=== PATIENT | male | born 1965 | race African-American/Black ===

== ENCOUNTER 2019-10-23 16:12 | Emergency (ER) | payer SELFPAY ==
[~2019-10-23] VITALS: Ht 172.7 cm; Wt 75.0 kg
[2019-10-23 17:55] VITALS: BP 142/89
== END 2019-10-23 19:36 | disposition home or self-care (01) ==
LOC: ER 16:12
DX: F16.229 Hallucinogen dependence with intoxication, unspecified (principal); G92 Toxic encephalopathy; Y92.488 Other paved roadways as the place of occurrence of the external cause
CPT/HCPCS: 99283